=== PATIENT | female | born 1955 | race Caucasian/White ===

== ENCOUNTER 2018-12-18 09:54 | Emergency (ER) | payer OTHER ==
[~2018-12-18] VITALS: Ht 160 cm; Wt 68.0 kg
[~2018-12-18 09:54] MED LIST: GABAPENTIN; ZOFRAN4 MG PO; [UNRECOGNIZED DRUG - OTHER]
[2018-12-18 10:24] LABS: HEMATOCRIT 44.5 % (37.0-47.0); HEMOGLOBIN 15.1 gm/dL (12.0-15.0); MCH 28.4 pg (26.0-34.0); MCHC 33.8 g/dL (28.0-37.0); MPV 6.9 fl. (7.2-11.1); NUCLEATED RBCS 0 /100WBC; PLATELET COUNT* 246 thou/uL (150-400); RDW-CV 13.1 % (10.5-14.5); WBC 6.7 thou/uL (4.0-11.0)
[2018-12-18 10:35] LABS: CALCIUM 8.9 mg/dL (8.5-10.1); CREATININE 0.9 mg/dL (0.6-1.3); POTASSIUM 3.8 mmol/L (3.5-5.1)
[2018-12-18 10:39] LABS: TOTAL BILIRUBIN 0.8 mg/dL (<0.1-1.0); TOTAL PROTEIN 8.1 g/dL (6.4-8.2)
[2018-12-18 11:08] LABS: ABSOLUTE LYMPHOCYTES 0.5 thou/uL (0.8-5.3); ABSOLUTE NEUTROPHILS 6.2 thou/uL (1.6-8.1); PLATELET ESTIMATE ADEQUATE
[2018-12-18 11:44] LABS: URINE BILIRUBIN NEGATIVE (Negative); URINE BLOOD 2+ (Negative); URINE CLARITY CLEAR; URINE COLOR YELLOW; URINE GLUCOSE-RANDOM NEGATIVE (Negative); URINE KETONES 2+ (Negative); URINE LEUKOCYTES-REFLEX NEGATIVE (Negative); URINE NITRITE-REFLEX NEGATIVE (Negative); URINE PROTEIN NEGATIVE (Negative); URINE UROBILINOGEN 0.2 E.U./dl (0.2-1.0)
[2018-12-18 11:51] LABS: SQUAMOUS 0-3 Few /LPF (0-3)
[2018-12-18 11:52] LABS: BACTERIA-REFLEX 1-9 Few /HPF (None Seen); CASTS None Seen /LPF (None Seen); CRYSTALS None Seen /LPF (None Seen); URINE RBC 0-2 Rare /HPF (0-2); URINE WBC-REFLEX 0-5 Rare /HPF (0-5)
[2018-12-18] MEDS ORDERED: ZOFRAN ODT4 MG PO (13:44)
[2018-12-18 14:00] VITALS: BP 105/80
--- NOTE | 2018-12-18 16:26 | EKG ---
[place] [address] ELECTROCARDIOGRAM REPORT Name: YOSELYN ABEL Room: [facility]#: [id number] Admission: 12/18/18 Attend Phys: Discharge: 12/18/18 Date of : 57 Report #: [id number] THIS REPORT FOR: //name// [facility] ED Test Date: 2018-12-18 Test Time: 10:43:24 Pat Name: YOSELYN ABEL Department: Room: Gender: F State Inspector: EV : 1955 Requested By: Bee Guzman Order Number: [id number] MD: Jose Newell Measurements Intervals [place] Rate: 56 P: 75 NC: 175 QRS: -68 QRSD: 87 T: 21 QT: 453 QTc: 438 Interpretive Statements Sinus rhythm Left anterior fascicular block Abnormal R-wave progression, early transition No previous ECG available for comparison Electronically Signed On 12-18-2018 16:26:09 CDT by Jose Newell [email or web address] <ELECTRONICALLY SIGNED> By: Jose Newell MD, [facility] 12/18/18 1626 1043 1043 Jose Newell MD, FACC /EPI
== END 2018-12-18 14:01 | disposition home or self-care (01) ==
LOC: M.ERS 09:54
PROVIDERS: Physician Assistant
DX: R11.2 Nausea with vomiting, unspecified (principal); R19.7 Diarrhea, unspecified; R10.11 Right upper quadrant pain; R10.33 Periumbilical pain; G89.29 Other chronic pain; Z88.8 Allergy status to other drugs, medicaments and biological substances